=== PATIENT | male | born 1975 | race Caucasian/White ===

== ENCOUNTER 2021-04-13 22:45 | Emergency (ER) | payer OTHER ==
[~2021-04-13] VITALS: Ht 180.3 cm; Wt 105.0 kg
[~2021-04-13 22:45] MED LIST: CIPRO500 MG OR; NO HOME MEDS; ZOFRAN ODT8 MG OR; ZOFRAN ODT8 MG SL; [UNRECOGNIZED DRUG - REMARK]
[2021-04-14 00:05] VITALS: BP 147/94
== END 2021-04-14 00:05 | disposition home or self-care (01) | DRG 179 ==
LOC: ED 22:45
DX: U07.1 COVID-19 (principal); F17.200 Nicotine dependence, unspecified, uncomplicated

== ENCOUNTER 2021-11-09 08:13 | Day surgery (SDC) | payer OTHER ==
[~2021-11-09] VITALS: Ht 180.3 cm; Wt 88.9 kg
[~2021-11-09 08:13] MED LIST changes: +AMOXICILLIN OR; +AMOXICILLIN500 MG PO; +AMOXICILLIN875 MG OR; +CLINDAMYCIN300 M1 PO; +EQ IBUPROFEN200 MG OR; +PRAVASTATIN SOD20 MG PO; +PROTONIX40 MG PO; +WELLBUTRIN150 M1 PO; +XANAX0.5 MG PO; +[UNRECOGNIZED DRUG - OTHER] OR
[2021-11-09 11:56] VITALS: BP 138/95
== END 2021-11-09 12:25 | disposition home or self-care (01) | DRG 670 ==
LOC: ORM 08:13
PROVIDERS: ATTEND Urology
PROC: 0TBB8ZX Excision of Bladder, Via Natural or Artificial Opening Endoscopic, Diagnostic (ICD-10-PCS; principal; 2021-11-09)
DX: C67.6 Malignant neoplasm of ureteric orifice (principal); F17.210 Nicotine dependence, cigarettes, uncomplicated
CPT/HCPCS: C1769; J1956; Q9967